=== PATIENT | male | born 1970 | race Caucasian/White ===

== ENCOUNTER 2025-09-19 15:16 | Emergency (ER) | payer BC, SELFPAY ==
[2025-09-19 15:17] VITALS: BP 132/79
[2025-09-19] MEDS: NSS 1000 IV ×2 (16:22→18:32)
[2025-09-19 16:26] LABS: Hematocrit 41.6 % (39.0-52.0); Hemoglobin 14.9 g/dL (13.0-18.0); Mean Corp Hgb Conc. 35.8 g/dL (33.0-37.0); Mean Corpuscular Volume 90.6 fL (80.0-94.0); Nucleated Red Blood Cells % 0 % (-); Platelet Count 116 10^3/uL (130-400); Red Cell Dist. Width 12.0 % (11.5-14.5)
[2025-09-19 16:27] LABS: COVID-19 Antigen Negative (Negative)
[2025-09-19 16:34] LABS: ALT (SGPT) 67 U/L (0-50); AST (SGOT) 82 U/L (17-59); Albumin 3.9 g/dl (3.5-5.0); Alkaline Phosphatase 64 U/L (38-126); Blood Urea Nitrogen 13 mg/dl (9-20); Calcium 8.6 mg/dl (8.4-10.2); Carbon Dioxide 25 mmol/L (22-30); Chloride 100 mmol/L (98-107); Glucose 119 mg/dl (70-99); Potassium 3.8 mmol/L (3.5-5.1); Sodium 132 mmol/L (135-145); Total Protein 6.9 g/dl (6.3-8.2); eGFR > 60.00
[2025-09-19 18:46] LABS: Urine Character Clear (Clear)
[2025-09-19] MEDS: TYLENOL 1000 MG PO (18:49)
[2025-09-19 18:56] LABS: Urine Red Blood Cell 40-50 /HPF (0-2); Urine Urothelial Cell 0-2 /LPF (FEW)
[2025-09-19 19:09] VITALS: BP 118/86
[2025-09-19 19:12] VITALS: BP 118/86; BMI 31.6
[2025-09-19] MEDS: ZOFRAN 4 MG IV (19:23)
[2025-09-19] MEDS: MORPHINE SULFATE 4 MG IV (19:57)
[2025-09-19 21:33] VITALS: BP 119/74
[2025-09-19] MEDS: MOTRIN 600 MG PO (21:41)
[2025-09-19 22:00] VITALS: BP 116/83
--- NOTE | 2025-09-19 22:48 | ED.GENMED ---
History of Present Illness
General
Chief Complaint: Fever
Source: patient and spouse
Time Seen by Provider: 09/19/25 15:45
History of Present Illness
History of Present Illness:
Note:
CHIEF COMPLAINT(S)
Fever, chills, and body aches.
HISTORY OF PRESENT ILLNESS
The patient is a 54-year-old male with a past medical history notable for a closed patent foramen ovale (PFO) following a stroke at a young age. He presents with fever, chills, and body aches beginning Saturday night, with the highest recorded
temperature being 103.2�F. The patient reports that his fever temporarily broke during the drive to the facility but is now starting to feel like it is returning. He last took something for the fever at noon and experienced nausea in the shower
afterward. He denies congestion, cough, or sore throat. The patient is concerned about possibly having influenza as similar cases have been seen in the community recently, despite having received a flu shot this year. He additionally describes no
desire to eat and emphasizes the body aches as particularly severe.
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
PAST MEDICAL AND SURGICAL HISTORY
Stroke secondary to patent foramen ovale
History of a congenital vascular abnormality
Deaf in the left ear
ADDITIONAL HISTORY OBTAINED FROM SOURCES OTHER THAN THE PATIENT
None available.
ALLERGIES
The patient reports a shellfish allergy and intolerance to iodinated contrast.
MEDICATIONS
Aspirin
Eliquis (Apixaban)
Lyrica (Pregabalin)
Hydrocodone and Meloxicam as needed for back pain
Recent use of acetaminophen for fever management
PHYSICAL EXAM
General: Alert, no acute distress.
Skin: Warm, dry.
Head: Normocephalic, atraumatic.
Neck: Supple, trachea midline.
Eye, Ears, Nose, Mouth, and Throat: Oral mucosa moist.
Cardiovascular: Regular rhythm, tachycardic. Normal peripheral perfusion. No edema.
Respiratory: Breath sounds clear.
Gastrointestinal: Abdomen nondistended.
Back: Normal range of motion, normal alignment.
Musculoskeletal: Normal range of motion, normal strength.
Neurological: Alert and oriented to person, place, time, and situation. No focal neurological deficit observed.
Psychiatric: Cooperative, appropriate mood & affect.
PROBLEM LIST
Acute:
1. Fever
2. Chills
3. Severe body aches
4. Nausea
Chronic:
1. Deafness in the left ear
2. History of stroke with past PFO closure
PLAN
1. Administer intravenous fluids for hydration, especially important given the patient reports lightheadedness.
2. Obtain nasal swabs for influenza and COVID-19 testing.
3. Continue using acetaminophen for fever management.
4. Discuss cautious use of ibuprofen in light of the patient�s current medication regimen, emphasizing sporadic use due to the blood thinner.
DIFFERENTIAL DIAGNOSIS
The Differential Diagnosis includes, in no particular order and is not limited to:
1. Influenza
2. COVID-19
3. Viral infection, unspecified
4. Bacterial infection, unspecified
5. Drug-induced fever
6. Urinary tract infection
7. Community-acquired pneumonia
8. Sinusitis
9. Mononucleosis
10. Pharyngitis
Disposition:
SUMMARY OF ENCOUNTER
The patient, a male, presented with fever, body aches, and nausea over the last two to three days. He was observed in the emergency department for an extended period, during which he appeared well and exhibited no heart murmur. The patients overall
white blood cell count was normal, but there was a slight left shift noted. Chest x-ray was negative for pneumonia, and physical examination of the abdomen showed no evidence of an infectious process. COVID-19 and influenza tests were negative.
Chemistry tests were unremarkable except for mild elevation of AST and ALT. Urinalysis showed no infection but did reveal microscopic hematuria. Blood cultures were obtained and are pending. The normal lactic acid level suggests no significant acute
systemic illness. It was considered that the symptoms could be viral in nature.
ASSESSMENT
The assessment points towards a possible viral infection as the underlying cause of the fever and body aches, given the absence of bacterial infection indicators. The negative influenza and COVID-19 tests further support this consideration. Mild
transaminitis and microscopic hematuria merits follow-up.
PLAN
The patient was advised to follow up with outpatient urine tests to ensure the resolution of microscopic hematuria. Instructions were given for the patient to return if symptoms progress and continue managing fever at home. Follow-up with a primary
care physician (PCP) was also recommended.
MEDICATION RECONCILIATION
Patient will maintain fever control at home with acetaminophen, as previously used.
MEDICAL DECISION MAKING
- Number and Complexity of Problems Addressed: Chronic conditions affecting care include past medical history of stroke, closed patent foramen ovale (PFO), and congenital vascular abnormality. Differential diagnosis includes influenza, COVID-19,
unspecified viral or bacterial infection, drug-induced fever, urinary tract infection, community-acquired pneumonia, sinusitis, mononucleosis, and pharyngitis.
- Data:
Category 1: Reviewed lab tests including CBC showing normal WBC with left shift, negative chest x-ray, unremarkable chemistry except AST/ALT elevation, and normal lactic acid. Reviewed negative COVID-19 and influenza tests, and urinalysis showing
microscopic hematuria.
- Risk: Prescription drug management advised for home fever control. Laboratory tests and radiology confirm a non-severe diagnosis hence, escalation of care was not necessary.
DIAGNOSIS
1. Possible Viral Infection, NOS (B34.9)
2. Transaminitis, Unspecified (R74.8)
3. Microscopic Hematuria (R31.2)
Phy Exam
Physical Exam
Physical Exam:
.
Course
Orders/Labs/Results
Orders:
Orders
09/19/25 15:40
Electrocardiogram (*1) Urgent
Reason for Study: Tachycardia
EKG- Treatment ONCE
09/19/25 15:57
0.9% Sodium Chloride 1000 ml [Nss] 1,000 ml IV BOLUS
09/19/25 16:04
COVID-19 Antigen Urgent
Source: Nasal Swab
Complete Blood Count/With Diff Urgent
Comprehensive Metabolic Panel Urgent
Influenza A+B Rapid Molecular Urgent
[facility] Source: Nasal Swab
Specimen Description:
09/19/25 16:49
Influenza A+B Rapid Molecular Urgent
[facility] Source: Nasal Swab
Specimen Description:
09/19/25 16:50
Acetaminophen [Tylenol] 1,000 mg .ROUTE .STK-MED ONE
09/19/25 18:05
0.9% Sodium Chloride 1000 ml [Nss] 1,000 ml IV BOLUS
CR Chest - 2 Views Urgent
Comment:
Reason For Exam: fever
09/19/25 18:30
Urinalysis Reflex To Culture Urgent
Date Specimen was Collected: 09/19/25
Time Specimen was Collected: 18:30
Urine Microscopic Reflex Cult Urgent
09/19/25 18:49
Acetaminophen [Tylenol] 1,000 mg PO NOW STA
09/19/25 19:19
Ondansetron Injectable [Zofran] 4 mg IV NOW STA
09/19/25 19:20
CT Abd/pel Without Iv Or Oral Urgent
Comment:
Reason For Exam: fever, hematuria
09/19/25 19:38
Morphine Sulfate 4 mg IV NOW STA
09/19/25 21:14
Lactic Acid Q4H
Comment: CANCEL 2nd LACTIC ACID IF 1st LACTIC ACID IS LESS THAN 2
Blood Culture Q30M
[facility] Source: Blood/Venous
Specimen Description:
09/19/25 21:27
Blood Culture Q30M
[facility] Source: Blood/Venous
Specimen Description:
09/19/25 21:35
Ibuprofen [Motrin] 600 mg PO NOW STA
09/19/25 23:45
Lactic Acid Q4H
Comment: CANCEL 2nd LACTIC ACID IF 1st LACTIC ACID IS LESS THAN 2
Abnormal Lab Results
09/19/25 09/19/25
16:04 18:30
RBC 4.59 L 10^6/uL
(4.70-6.10)
MCH 32.5 H pg
(27.0-31.0)
Plt Count 116 L 10^3/uL
(130-400)
Absolute Neuts (auto) 6.7 H 10^3/uL
(1.4-6.5)
Absolute Lymphs (auto) 0.3 L 10^3/uL
(1.2-3.4)
Neutrophils % 90.5 H %
(42.2-75.2)
Lymphocytes % 3.6 L %
(20.5-51.1)
Sodium 132 L mmol/L
(135-145)
Glucose 119 H mg/dl
(70-99)
AST 82 H U/L
(17-59)
ALT 67 H U/L
(0-50)
Ur Occult Blood Reflex 4+ A
(Negative)
Urine RBC 40-50 A /HPF
(0-2)
Urine Bacteria (Reflex) Few A
(Negative)
Urine Albumin (Reflex) 2+ A
(Neg - Trace)
09/19/25 16:04
09/19/25 16:04
Vital Signs
Initial and Last Documented VS:
Initial Vital Signs
Temp Pulse Resp BP Pulse Ox
99.2 F 117 18 132/79 97
09/19/25 15:17 09/19/25 15:17 09/19/25 15:17 09/19/25 15:17 09/19/25 15:17
Last Documented Vital Signs
Temp Pulse Resp BP Pulse Ox
99.8 F 102 11 118/86 98
09/19/25 22:45 09/19/25 19:12 09/19/25 19:12 09/19/25 19:12 09/19/25 19:12
*Pulse Oximetry
SaO2: 98
Oxygen Mode of Delivery: Room air
Patient hypoxic: no
*Critical Care Note
Total Time (30-74mins, 75-104mins- exclusive of procedures): Not Applicable
ED Attending Note
-
Portions of this chart may have been created with voice recognition software.� Occasional wrong word or��sound alike� substitutions may have occurred due to the inherent limitations of voice recognition software.
Discharge Plan
Departure
Patient Disposition: Home (Routine Discharge)
Date of Disposition: 09/19/25
Time of Disposition: 22:48
Patient with high blood pressure during this ER visit?: No
Discharge Problem:
Fever, Hematuria, microscopic
Instructions: Fever, Adult (DC)
Referrals:
SYKES,GRICEL [Other]
Activity Restrictions/Additional Instructions:
Please continue fever control with Tylenol and occasional ibuprofen as needed. Drink plenty of fluids. Please see your doctor next 2 to 3 days for follow-up and reevaluation. Return for worsening symptoms, shortness of breath, neck pain,
headache, rash, changes in mentation, vomiting or any other concerns. Blood cultures were sent and if they are abnormal we will call you.
You had small amount of blood noted in your urine. Please see your doctor for a repeat urinalysis in 2 weeks to ensure that the blood is cleared.
Interventions
Interventions:
*Risk Screen - Suicide Last Done: 09/19/25 15:17
*General Assessment Last Done: 09/19/25 15:17
*Neglect/Abuse Screening Last Done: 09/19/25 15:17
*ED COVID-19 Vaccine History Last Done: 09/19/25 16:28
*ED Influenza Vaccine History Last Done: 09/19/25 16:[address]
[facility] Fall Risk Assessment Tool Last Done: 09/19/25 16:28
ED- Neurological Assessment Last Done: 09/19/25 19:10
ED-Skin Assessment Last Done: 09/19/25 16:27
Discharge Date and Time
Print Language: CITIZEN OF [place]
[2025-09-19 22:56] VITALS: BP 122/86
== END 2025-09-19 23:03 | disposition home or self-care (01) ==
LOC: EMR 15:16
PROVIDERS: EMERGENCY PHYSICIAN Emergency Medicine
DX: R31.29 Other microscopic hematuria (principal); R50.9 Fever, unspecified; Q21.12 Patent foramen ovale; Z86.73 Personal history of transient ischemic attack (TIA), and cerebral infarction without residual deficits; H91.92 Unspecified hearing loss, left ear
CPT/HCPCS: 99284; 96374; 96375; 96361; 71046; 74176; 80053; 81003; 81015; 83605; 85025; 87040; 87502; 87811; 93005